=== PATIENT | male | born 1990 | race Caucasian/White ===

== ENCOUNTER 2016-10-26 10:55 | Inpatient (IN) | payer OTHER ==
[~2016-10-26] VITALS: Ht 177.8 cm; Wt 100.0 kg
[2016-10-26 12:07] LABS: MEAN CORPUSCULAR HEMOGLOBIN 29.6 pg (27.0-33.0); MEAN CORPUSCULAR HGB CONC 34.5 g/dl (32.0-36.5); MEAN CORPUSCULAR VOLUME 85.6 fl (80.0-96.0); RED CELL DISTRIBUTION WIDTH 12.7 % (11.5-14.5); WHITE BLOOD COUNT 7.2 K/mm3 (4.0-10.0)
[2016-10-26 12:27] LABS: ALBUMIN 4.3 GM/DL (3.2-5.2); ALBUMIN/GLOBULIN RATIO 1.13 (1.00-1.93); ALKALINE PHOSPHATASE 104 U/L (45-117); ALT/SGPT 35 U/L (12-78); ANION GAP 7 MEQ/L (8-16); AST/SGOT 16 U/L (15-37); BILIRUBIN,DIRECT 0.2 MG/DL (0.0-0.2); BILIRUBIN,TOTAL 0.7 MG/DL (0.2-1.0); BLOOD UREA NITROGEN 12 MG/DL (7-18); CARBON DIOXIDE LEVEL 28 MEQ/L (21-32); CHLORIDE LEVEL 105 MEQ/L (98-107); CREATININE FOR GFR 1.07 MG/DL (0.70-1.30); GLOMERULAR FILTRATION RATE > 60.0 (>60); GLUCOSE, FASTING 89 MG/DL (70-105); POTASSIUM SERUM 3.9 MEQ/L (3.5-5.1); SODIUM LEVEL 140 MEQ/L (136-145); TOTAL PROTEIN 8.1 GM/DL (6.4-8.2)
[2016-10-26 14:03] LABS: METHADONE URINE NEGATIVE (NEGATIVE)
[2016-10-26] MEDS ORDERED: MOM 30ML SUSPENSION UDC PO PRN (17:00)
[2016-10-26] MEDS ORDERED: ACETAMINOPHEN TAB 650MG DOSE (2X325MG) PO PRN (17:00)
[2016-10-26] MEDS ORDERED: traZODone 50 MG TAB PO PRN (17:00)
[2016-10-26] MEDS ORDERED: MAALOX 30 ML SUSP *UDC PO PRN (17:00)
[2016-10-27 06:39] VITALS: BP 110/61
--- NOTE | 2016-10-27 08:46 | HPEPDOC ---
Medical History and Physical Date of Admission Oct 26, 2016 at 14:42 History and Physical PCP: [facility] ATTENDING: Dr. aJrett West HPI: 26yoM admitted to [facility] for unspecified depressive disorder, being medically examined today. No acute medical complaints today. Denies any fevers, chills, weakness, fatigue, LEDEZMA, CP, SOB, cough, palpitations, abdominal pain, N/V /D or changes in bowel or bladder habits. 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 ROS: As noted in HPI, otherwise 11pt ROS of systems reviewed and unremarkable. PE: GEN: 26 yo M, appears stated age. Well-nourished, well developed. No acute distress. Alert and oriented x 3. Pleasant, interactive. HEENT: Normocephalic, atraumatic. Pupils are equal, round, and reactive to light. Extraocular movements are intact. No nystagmus appreciated. Sclera are nonicteric. Conjunctiva without injection. Nose midline. Nasal turbinates without bogginess. EACs both patent BL. TMs both visualized and freed with good cone of light, no bulging or erythema. No facial asymmetry. Moist mucous membranes. Dentition fair. Pharynx pink and moist, no cobblestoning. Neck supple , trachea midline. No lymphadenopathy or thyromegaly appreciated. CHEST: Regular rate and rhythm, +S1, +S2 LUNGS: Clear to auscultation bilaterally. No wheezes, rales, or rhonchi. Breathing appears symmetric and easy. Patient is speaking in full sentences. No accessory muscle use. ABD: Round, soft, non-tender, non-distended. +Bowel sounds throughout. No rebound or guarding. No costovertebral angle tenderness. EXT: Pulses 2+ bilaterally dorsalis pedis and radial. No lower extremity edema appreciated. SKIN: [place], dry, warm. Capillary refill <2sec. No rashes. NEURO: Alert and oriented x 3. Cranial nerves III-XII are intact. No focal deficits appreciated. EKG: Pending. A&P: 26yoM admitted to [facility] for unspecified depressive disorder 1. Psych. Plan per Psychiatry. Obtain baseline EKG to assure the safety of psychiatric medications as they can prolong the QT interval. 2. Follow up with PCP on discharge. 3. Staff member Wilfredo present throughout exam. Vital Signs Vital Signs Date Time Temp Pulse Resp B/P (MAP) Pulse Ox O2 Delivery O2 Flow Rate FiO2 10/27/16 06:39 97.3 71 16 110/61 (77) Room Air 10/26/16 15:30 99 Laboratory Data Labs 24H Laboratory Tests 2 10/26/16 11:17: Urine Amphetamines Screen NEGATIVE, Urine Benzodiazepines Screen NEGATIVE, Urine Opiates Screen NEGATIVE, Urine Methadone Screen NEGATIVE, Urine Barbiturates Screen NEGATIVE, Urine Phencyclidine Screen NEGATIVE, Urine Cocaine Metabolite Screen NEGATIVE, Urine Cannabinoids Screen NEGATIVE 10/26/16 11:50: Anion Gap 7L, Glomerular Filtration Rate > 60.0, Calcium Level 9.0, Aspartate Amino Transf (AST/SGOT) 16, Alanine Aminotransferase (ALT/SGPT) 35, Alkaline Phosphatase 104, Total Bilirubin 0.7, Direct Bilirubin 0.2, Total Protein 8.1, Albumin 4.3, Albumin/Globulin Ratio 1.13, Thyroid Stimulating Hormone (TSH) 2.520, Salicylates Level < 1.7L, Acetaminophen Level < 2.0L, Ethyl Alcohol Level < 0.003 CBC/BMP Laboratory Tests 10/26/16 11:50 Red Blood Count 5.70, Mean Corpuscular Volume 85.6, Mean Corpuscular Hemoglobin 29.6, Mean Corpuscular Hemoglobin Concent 34.5, Red Cell Distribution Width 12.7 Home Medications No Active Prescriptions or Reported Meds Allergies Coded Allergies: No Known Allergies (Unverified , 10/26/16) Evie Leggett Oct 27, 2016 08:46
[2016-10-27] MEDS: FLUoxetine 10 MG CAP PO SCH (09:00)
--- NOTE | 2016-10-27 09:25 | MHHPEPDOC ---
[facility] History & Physical History and Physical DATE OF ADMISSION: Oct 26, 2016 at 14:42 LEGAL STATUS AT ADMISSION: 9.13 CHIEF COMPLAINT: Depression & Suicidal ideations. 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 PAST PSYCHIATRIC HISTORY: none reported ALLERGIES: Please see below. FAMILY PSYCHIATRIC HISTORY: none reported. 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 Denies any physical or sexual abuse. Also denies any traumatic events in her life SUBSTANCE ABUSE HISTORY:. Occasional alcohol use. Denies any blackouts or withdrawal symptoms ever. Denies any other substance use. PAST MEDICAL/SURGICAL HISTORY: 1. Hernia repair in childhood. 2.. Patient denies any other medical illnesses or surgical procedures. 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 Depressive disorder, unspecified, rule out adjustment disorder with depressed mood. 2.. Rule out Major depression without psychosis. ASSESSMENT: Biologically, having no family history of psychiatric illness. No long-term substance abuse and no chronic medical illnesses can be productive for the patient. Psychologically, having poor. Defense mechanisms and coping skills can be perpetuating factors. Socially, being and having child can be protected while having stressful job can be perpetuating factor for him PROBLEM LIST: 1. Depression. 2. Suicidal ideations. INITIAL TREATMENT PLAN: 1. Patient was admitted on a 10.28 2. Complete history was obtained. 3. With patients permission, family will be contacted and database will be expanded. 4. Patients medication regimen will be reviewed and changed accordingly. 5. Patient will be provided with protected environment. 6. Patient will be treated with individual, group, and milieu therapies. 7. Patient will receive supportive psych-education. 8. Discharge planning will commence immediately. 9. Outpatient follow-up treatment will be strongly recommended. 10. The initial treatment plan will focus initially on: * Depression. * Risk for suicide. ESTIMATED LENGTH OF STAY: 3-5 DAYS. TIME SPENT COUNSELING AND COORDINATING INITIAL CARE: 45 minutes. Laboratory Data 24H Labs Laboratory Tests 2 10/26/16 11:17: Urine Amphetamines Screen NEGATIVE, Urine Benzodiazepines Screen NEGATIVE, Urine Opiates Screen NEGATIVE, Urine Methadone Screen NEGATIVE, Urine Barbiturates Screen NEGATIVE, Urine Phencyclidine Screen NEGATIVE, Urine Cocaine Metabolite Screen NEGATIVE, Urine Cannabinoids Screen NEGATIVE 10/26/16 11:50: Anion Gap 7L, Glomerular Filtration Rate > 60.0, Calcium Level 9.0, Aspartate Amino Transf (AST/SGOT) 16, Alanine Aminotransferase (ALT/SGPT) 35, Alkaline Phosphatase 104, Total Bilirubin 0.7, Direct Bilirubin 0.2, Total Protein 8.1, Albumin 4.3, Albumin/Globulin Ratio 1.13, Thyroid Stimulating Hormone (TSH) 2.520, Salicylates Level < 1.7L, Acetaminophen Level < 2.0L, Ethyl Alcohol Level < 0.003 CBC/BMP Laboratory Tests 10/26/16 11:50 Red Blood Count 5.70, Mean Corpuscular Volume 85.6, Mean Corpuscular Hemoglobin 29.6, Mean Corpuscular Hemoglobin Concent 34.5, Red Cell Distribution Width 12.7 Medications No Active Prescriptions or Reported Meds Allergies Coded Allergies: No Known Allergies (Unverified , 10/26/16) MAY ROSENTHAL MD Oct 27, 2016 09:25
[2016-10-27 18:00] VITALS: BP 130/84
--- NOTE | 2016-10-27 20:41 | ECGEPIP ---
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
[2016-10-28 06:35] VITALS: BP 107/56
[2016-10-28] MEDS: FLUoxetine 10 MG CAP PO SCH (09:00)
--- NOTE | 2016-10-28 16:00 | MHIPNPDOC ---
[facility] Progress Note Progress Note DATE OF SERVICE: 10/28/16 HISTORY: He was seen and evaluated. He reported that he has been feeling better and has been sleeping and eating better. He reports that he is enjoying and learning from the group therapy, as well as milieu treatment, that he has been receiving in the inpatient unit here, he thinks that he has learned a lot from that and currently does not feel any need for taking any medications and that's why he has been refusing medications while he is here. He reports that he is willing to continue outpatient psychotherapy and continue to learn coping skills and work with psychiatrist outpatient for meds If therapy is not enough for him and he continued to have depression. 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 He reports that he is planning to have his back along with their child in the house by end of this week and when he is surrounded by family and colleagues, He does not feel suicidal, has never attempted suicide and denies any intent to kill himself. VITAL SIGNS: See below. CURRENT MEDICATIONS: See below. MENTAL STATUS EXAMINATION: 26yo male sitting in the chair, looks appropriate for the stated age, fair hygiene and grooming, normal psychomotor activities, no abnormal movements, cooperative with fair eye contact, speech is normal in rate, rhythm, amount and prosody, mood is 'sad', affect constricted and mood congruent, thought process is logical and goal directed, currently denies suicidal and homicidal ideations , denies hallucinations, no delusions elicited, aaox3, fair immediate, short term and long-term memory, fair insight, judgement and impulse control DIAGNOSES: 1. Depressive disorder, unspecified, rule out adjustment disorder with depressed mood. 2.. Rule out Major depression without psychosis. ASSESSMENT: Biologically, having no family history of psychiatric illness. No long-term substance abuse and no chronic medical illnesses can be productive for the patient. Psychologically, having poor. Defense mechanisms and coping skills can be perpetuating factors. Socially, being and having child can be protected while having stressful job can be perpetuating factor for him MANAGEMENT PLAN: Continue current treatment. Psychoeducation about medications, including potential benefits and risks and alternatives was provided again and he continues to refuse medications, chain of command meeting scheduled for tomorrow. TIME SPENT:. 15 minutes. Vital Signs Vital Signs Date Time Temp Pulse Resp B/P (MAP) Pulse Ox O2 Delivery O2 Flow Rate FiO2 10/28/16 06:35 98.3 58 16 107/56 (73) Room Air 10/26/16 15:30 99 Current Medications Current Medications Acetaminophen (Tylenol Tab) 650 mg Q6HP PRN PO HEADACHE or DISCOMFORT; Start at 17:00; Stop 11/25/16 at 16:59 Al Hydrox/Mg Hydrox/Simethicone (Mylanta) 30 ml Q4HP PRN PO HEARTBURN/ INDIGESTION; Start 10/26/16 at 17:00; Stop 11/25/16 at 16:59 Fluoxetine HCl (PROzac) 10 mg DAILY PO ; Start 10/27/16 at 09:00; Stop at 08:59 Home Med (Med Rec Complete!) ASDIRECTED XX ; Start 10/26/16 at 15:15; Stop 01/01 at 15:15; Status DC Magnesium Hydroxide (Milk Of Magnesia) 30 ml DAILYPRN PRN PO CONSTIPATION; Start 10/26/16 at 17:00; Stop 11/25/16 at 16:59 Trazodone HCl (Desyrel) 50 mg QHSP PRN PO INSOMNIA; Start 10/26/16 at 17:00; Stop 11/25/16 at 16:59 Allergies Coded Allergies: No Known Allergies (Unverified , 10/26/16) MAY ROSENTHAL MD Oct 28, 2016 16:00
[2016-10-28 18:00] VITALS: BP 127/68
[2016-10-29 06:32] VITALS: BP 134/70
[2016-10-29] MEDS: FLUoxetine 10 MG CAP PO SCH (09:00)
--- NOTE | 2016-10-29 15:48 | MHDSPDOC ---
[facility] Discharge Summary Discharge Summary DATE OF ADMISSION: Oct 26, 2016 at 14:42 DATE OF DISCHARGE: Oct 29, 2016 at 11:05 DISCHARGE DIAGNOSES: 1. Mood disorder, unspecified, rule out major depression without psychosis. 2., Rule out adjustment disorder with depressed mood. REASON FOR ADMISSION:, Depression and suicidal ideations. 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 but they referred here. PAST PSYCHIATRIC HISTORY: none reported ALLERGIES: Please see below. FAMILY PSYCHIATRIC HISTORY: none reported. 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 Denies any physical or sexual abuse. Also denies any traumatic events in her life SUBSTANCE ABUSE HISTORY:. Occasional alcohol use. Denies any blackouts or withdrawal symptoms ever. Denies any other substance use. PAST MEDICAL/SURGICAL HISTORY: 1. Hernia repair in childhood. 2.. Patient denies any other medical illnesses or surgical procedures." CONSULTANTS INVOLVED: Medical evaluation and treatment TREATMENT AND PROGRESS ON THE UNIT : The patient was admitted on and was started on Prozac initially patient was depressed and having suicidal ideations. He was also started on when necessary medications of trazodone for his sleep problems. Patient was participating in the unit activities including group therapy and milieu treatment, but refused to take any medications. He responded well to the treatment and did not meet criteria for medication override. HOSPITAL COURSE: Initially after the admission, patient was sad. He responded well to the treatment and his mood stabilized more. Denied any suicidal or homicidal ideations. Patient did not need any restraints. Constant observations or IM medications while being in the hospital DISCHARGE ASSESSMENT:. Patient reported that his mood has been more stable and denied any suicidal or homicidal ideations, intentions or plans. He denied any psychotic symptoms including paranoid ideations or hallucinations. 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 The amount of time spent in the coordination of care for this patient was approximately 30 minutes. Vital Signs/I&Os Vital Signs Date Time Temp Pulse Resp B/P (MAP) Pulse Ox O2 Delivery O2 Flow Rate FiO2 10/29/16 06:32 98.3 56 18 134/70 (91) 10/28/16 06:35 Room Air 10/26/16 15:30 99 Medications No Active Prescriptions or Reported Meds Allergies Coded Allergies: No Known Allergies (Unverified , 10/26/16) MAY ROSENTHAL MD Oct 29, 2016 15:48
== END 2016-10-29 11:05 | disposition home or self-care (01) | DRG 881 ==
LOC: M ED 10:55 → M ED INP 14:42 → M PSY 15:50
PROVIDERS: ADMIT Psychiatry & Neurology Psychiatry; ATTEND Psychiatry & Neurology Psychiatry
DX: F43.21 Adjustment disorder with depressed mood (principal); F32.9 Major depressive disorder, single episode, unspecified; Z63.32 Other absence of family member